=== PATIENT | female | born 1930 | race Caucasian/White ===

== ENCOUNTER → 2016-12-12 | Outpatient (CLI) | payer MEDICARE ==
[~2016-12-12] MED LIST: AMLODIPINE BES2.5 MG PO; ASPIRIN E.C.81 M1 PO; ATENOLOL25 MG PO; CALCIUM500 M4 PO; CELEBREX200 MG PO; CENTRUM SILVER1 EAC3 PO; CIPRO500 MG PO; Cymbalta PO; FISH OIL 1,0001 EAC7 PO; FLAGYL500 MG PO; LYRICA75 MG PO; NORCO 5/3251 TABLET PO; NORVASC2.5 MG PO; Norvasc PO; SYNTHROID100 MCG PO; SYNTHROID25 MCG PO; THERAGRAN1 TABLET PO; VITAMIN B12 PO
== END | disposition home or self-care (01) ==
LOC: CDC 09:36
DX: Z01.810 Encounter for preprocedural cardiovascular examination (principal); H25.12 Age-related nuclear cataract, left eye
CPT/HCPCS: 93000

== ENCOUNTER → 2017-07-18 | Outpatient (CLI) | payer MEDICARE | END | disposition home or self-care (01) | LOC: CDC 10:44 | DX: R94.31 Abnormal electrocardiogram [ECG] [EKG] (principal) | CPT/HCPCS: 93000 ==

== ENCOUNTER 2018-05-05 08:41 | Inpatient (IN) | payer OTHER, MEDICARE ==
[~2018-05-05] VITALS: Ht 160 cm; Wt 49.6 kg
[2018-05-05] VITALS (19 sets, daily range): BP systolic 90–132; BP diastolic 42–79
[~2018-05-05 08:41] MED LIST changes: -SYNTHROID100 MCG PO; +SYNTHROID112 MCG PO
[2018-05-05 09:10] LABS: BASOPHIL (%) 0.1 % (0-1); EOSINOPHIL (%) 0 % (0-5); HEMATOCRIT 44.7 % (36.0-46.0); HEMOGLOBIN 14.9 G/DL (11.9-15.5); IMMATURE GRANULOCYTE (%) 0.6 % (0.0-0.7); LYMPHOCYTE (%) 5.1 % (15-42); LYMPHOCYTE COUNT 0.8 K/uL (1.0-2.8); MCH 32.6 PG (29.0-34.0); MCHC 33.3 G/DL (30.0-36.0); MCV 97.8 FL (83-99); MONOCYTE (%) 2.7 % (3-12); MONOCYTE COUNT 0.5 K/uL (0-0.8); NEUTROPHIL (%) 91.5 % (45-76); PLATELET COUNT 291 K/uL (156-360); RBC DIS.WIDTH-CV 12.8 % (11.8-14.6); RBC DIS.WIDTH-SD 45.8 % (39-53); RED BLOOD COUNT 4.57 M/uL (3.80-5.20); WHITE BLOOD COUNT 16.4 K/uL (4.1-10.2)
[2018-05-05 09:18] LABS: AMYLASE 71 IU/L (1-118); CHLORIDE 101 mEq/L (99-109); POTASSIUM 5.3 mEq/L (3.7-5.4); SODIUM 135 mEq/L (136-147)
[2018-05-05 09:20] LABS: GLUCOSE 179 mg/dL (70-99)
[2018-05-05 09:23] LABS: SERUM ETHYL ALCOHOL < 10 mg/dL
[2018-05-05 09:24] LABS: CREATININE 0.8 mg/dL (0.6-1.3); GFR ESTIMATE (CALCULATED) > 59 mL/min/; INTER. NORMALIZED RATIO 1.1
[2018-05-05 09:25] LABS: UREA NITROGEN (BUN) 22 mg/dL (9-23)
[2018-05-05 09:26] LABS: PTT 26.6 SEC (25-37)
[2018-05-05 09:27] LABS: LIPASE 23 U/L (1.0-51.0)
[2018-05-05 09:33] LABS: TROP-I INTERPRETATION POSITIVE
[2018-05-05 09:35] LABS: TROPONIN-I 8.02 ng/mL (0.0-0.30)
[2018-05-05 19:15] LABS: TROP-I INTERPRETATION POSITIVE; TROPONIN-I 155.99 ng/mL (0.0-0.30)
[2018-05-05 20:33] LABS: CK-MB 325.8 ng/mL (0.0-4.9)
[2018-05-05 20:59] LABS: BASOPHIL (%) 0.2 % (0-1); EOSINOPHIL (%) 0 % (0-5); HEMATOCRIT 37.6 % (36.0-46.0); IMMATURE GRANULOCYTE (%) 0.5 % (0.0-0.7); LYMPHOCYTE (%) 3.7 % (15-42); LYMPHOCYTE COUNT 0.7 K/uL (1.0-2.8); MCH 32.3 PG (29.0-34.0); MCV 97.9 FL (83-99); MONOCYTE (%) 7.3 % (3-12); MONOCYTE COUNT 1.4 K/uL (0-0.8); NEUTROPHIL (%) 88.3 % (45-76); NEUTROPHIL COUNT 16.3 K/uL (1.8-6.4); PLATELET COUNT 239 K/uL (156-360); RBC DIS.WIDTH-CV 13.1 % (11.8-14.6); RBC DIS.WIDTH-SD 46.5 % (39-53); RED BLOOD COUNT 3.84 M/uL (3.80-5.20); WHITE BLOOD COUNT 18.5 K/uL (4.1-10.2)
[2018-05-05 21:05] LABS: HEMOGLOBIN 12.4 G/DL (11.9-15.5)
[2018-05-05 21:12] LABS: CKMB RELATIVE INDEX 11.8 (0.0-3.9); TOTAL CK 2753 IU/L (1-294)
[2018-05-05 21:18] LABS: CREATINE KINASE 2753 IU/L (1-294)
[2018-05-05 21:53] LABS: TOTAL CK 2447 IU/L (1-294)
[2018-05-05 22:01] LABS: CREATINE KINASE 2447 IU/L (1-294)
[2018-05-05 22:11] LABS: CK-MB 252.6 ng/mL (0.0-4.9); CKMB RELATIVE INDEX 10.3 (0.0-3.9)
[2018-05-06] VITALS (13 sets, daily range): BP systolic 84–117; BP diastolic 47–65
[2018-05-06 03:57] LABS: BASOPHIL (%) 0.1 % (0-1); EOSINOPHIL (%) 0 % (0-5); HEMATOCRIT 34.1 % (36.0-46.0); HEMOGLOBIN 11.5 G/DL (11.9-15.5); IMMATURE GRANULOCYTE (%) 0.9 % (0.0-0.7); LYMPHOCYTE (%) 3.1 % (15-42); LYMPHOCYTE COUNT 0.8 K/uL (1.0-2.8); MCHC 33.7 G/DL (30.0-36.0); MCV 97.7 FL (83-99); NEUTROPHIL (%) 87.9 % (45-76); NEUTROPHIL COUNT 22.3 K/uL (1.8-6.4); PLATELET COUNT 214 K/uL (156-360); RBC DIS.WIDTH-CV 13.1 % (11.8-14.6); RBC DIS.WIDTH-SD 46.5 % (39-53); RED BLOOD COUNT 3.49 M/uL (3.80-5.20); WHITE BLOOD COUNT 25.3 K/uL (4.1-10.2)
[2018-05-06 04:09] LABS: CHLORIDE 101 mEq/L (99-109); SODIUM 134 mEq/L (136-147)
[2018-05-06 04:10] LABS: GLUCOSE 123 mg/dL (70-99)
[2018-05-06 04:14] LABS: CREATININE 0.9 mg/dL (0.6-1.3); GFR ESTIMATE (CALCULATED) > 59 mL/min/
[2018-05-06 04:15] LABS: UREA NITROGEN (BUN) 29 mg/dL (9-23)
[2018-05-06 04:16] LABS: TOTAL CK 1751 IU/L (1-294)
[2018-05-06 04:23] LABS: CK-MB 97.2 ng/mL (0.0-4.9); CKMB RELATIVE INDEX 5.6 (0.0-3.9)
[2018-05-06 04:29] LABS: CREATINE KINASE 1751 IU/L (1-294)
[2018-05-06 04:53] LABS: HDL CHOLESTEROL 54 MG/DL (Desirable>=50); LDL CHOLESTEROL 78 mg/dL (Desirable<100); NON-HDL CHOLESTEROL 92 mg/dL (Desirable<160); TOTAL CHOLESTEROL 146 mg/dL (Desirable<200); TRIGLYCERIDES 69 MG/DL (Normal: <150)
[2018-05-06 05:27] LABS: TROP-I INTERPRETATION POSITIVE
[2018-05-06 09:53] LABS: HEMOGLOBIN A1c (GLYCOHEMOGLOB) 4.9 % (Below 5.7)
[2018-05-06] MEDS ORDERED: VITAMIN D31000 UNIT PO (21:07)
[2018-05-06] MEDS ORDERED: ENTOCORT EC3 MG PO (21:08)
[2018-05-06] MEDS ORDERED: CILOSTAZOL50 MG PO (21:08)
[2018-05-06] MEDS ORDERED: FIBERCON625 MG PO (21:11)
[2018-05-07 05:04] VITALS: BP 109/58
[2018-05-07 05:26] LABS: HEMATOCRIT 29.8 % (36.0-46.0); MCHC 33.6 G/DL (30.0-36.0); MCV 98.3 FL (83-99); PLATELET COUNT 157 K/uL (156-360); RBC DIS.WIDTH-CV 13.1 % (11.8-14.6); RBC DIS.WIDTH-SD 46.8 % (39-53); RED BLOOD COUNT 3.03 M/uL (3.80-5.20); WHITE BLOOD COUNT 15.2 K/uL (4.1-10.2)
[2018-05-07 05:49] LABS: CHLORIDE 102 MEQ/L (99-109); CREATININE 0.7 MG/DL (0.6-1.3); GFR ESTIMATE (CALCULATED) > 59 mL/min/; GLUCOSE 116 mg/dL (70-99); POTASSIUM 3.8 MEQ/L (3.7-5.4); SODIUM 134 MEQ/L (136-147); UREA NITROGEN (BUN) 26 mg/dL (9-23)
[2018-05-07 08:40] VITALS: BP 104/59
[2018-05-07 11:09] VITALS: BP 94/50
[2018-05-07 16:06] LABS: HEMATOCRIT 32.8 % (36.0-46.0); HEMOGLOBIN 10.7 G/DL (11.9-15.5); MCH 32.1 PG (29.0-34.0); MCHC 32.6 G/DL (30.0-36.0); MCV 98.5 FL (83-99); RBC DIS.WIDTH-CV 13.2 % (11.8-14.6); RBC DIS.WIDTH-SD 47.2 % (39-53); RED BLOOD COUNT 3.33 M/uL (3.80-5.20); WHITE BLOOD COUNT 13.5 K/uL (4.1-10.2)
[2018-05-07 17:03] VITALS: BP 117/56
[2018-05-07 19:41] LABS: PLAT.SUFFICIENCY ADEQUATE; PLATELET COUNT 155 K/uL (156-360)
[2018-05-07 20:01] VITALS: BP 119/58
[2018-05-08 00:12] VITALS: BP 102/53
[2018-05-08 04:34] VITALS: BP 117/68
[2018-05-08 05:22] LABS: HEMATOCRIT 31.6 % (36.0-46.0); HEMOGLOBIN 10.5 G/DL (11.9-15.5); MCH 32.9 PG (29.0-34.0); MCHC 33.2 G/DL (30.0-36.0); MCV 99.1 FL (83-99); PLATELET COUNT 151 K/uL (156-360); RBC DIS.WIDTH-CV 13.1 % (11.8-14.6); RBC DIS.WIDTH-SD 47.1 % (39-53); RED BLOOD COUNT 3.19 M/uL (3.80-5.20); WHITE BLOOD COUNT 10.6 K/uL (4.1-10.2)
[2018-05-08 06:16] LABS: CHLORIDE 100 MEQ/L (99-109); CREATININE 0.6 MG/DL (0.6-1.3); GFR ESTIMATE (CALCULATED) > 59 mL/min/; GLUCOSE 98 mg/dL (70-99); POTASSIUM 4.1 MEQ/L (3.7-5.4); SODIUM 134 MEQ/L (136-147); UREA NITROGEN (BUN) 20 mg/dL (9-23)
[2018-05-08 08:06] VITALS: BP 122/60
[2018-05-08 11:55] VITALS: BP 91/54
[2018-05-08] MEDS ORDERED: NITROSTAT0.4 MG SL (12:34)
[2018-05-08] MEDS ORDERED: ATORVASTATIN CA80 MG PO (12:34)
[2018-05-08] MEDS ORDERED: ASPIR-LOW81 MG PO (12:36)
[2018-05-08] MEDS ORDERED: BRILINTA90 MG PO (12:37)
[2018-05-08] MEDS ORDERED: METOPROLOL SUCC25 MG PO (12:38)
== END 2018-05-08 14:12 | disposition home health service (06) | DRG 247 ==
LOC: EME 08:41 → CATH 09:08 → ENRESERV 09:23 → 4WEST 12:10 → 4EAST 12:10 → 4WEST 05-06 10:16 → ENRESERV 05-06 10:19 → 4EAST 05-06 15:00
PROVIDERS: Emergency Medicine; Internal Medicine Cardiovascular Disease; Internal Medicine Critical Care Medicine
DX: I21.02 ST elevation (STEMI) myocardial infarction involving left anterior descending coronary artery (principal); E03.9 Hypothyroidism, unspecified; E87.1 Hypo-osmolality and hyponatremia; I10 Essential (primary) hypertension; I25.5 Ischemic cardiomyopathy; I25.10 Atherosclerotic heart disease of native coronary artery without angina pectoris; I71.2 Thoracic aortic aneurysm, without rupture; M79.7 Fibromyalgia; I73.9 Peripheral vascular disease, unspecified; J43.9 Emphysema, unspecified; I97.630 Postprocedural hematoma of a circulatory system organ or structure following a cardiac catheterization; Y84.0 Cardiac catheterization as the cause of abnormal reaction of the patient, or of later complication, without mention of misadventure at the time of the procedure; Y92.230 Patient room in hospital as the place of occurrence of the external cause
CPT/HCPCS: 71045; 80048; 80061; 81003; 82150; 82550 91; 82553; 83036; 83690; 84484; 85025; 85025 91; 85027; 85347; 85610; 85730; 86850; 86900; 86901; 87641; 93005; 93306; 94799; 99281; 99285; C1725; C1757; C1769; C1874; C1887; C1894; G0480; J0153; J1644; J1940; J2250; J2270; J2405; J3010; J3246

== ENCOUNTER 2018-06-12 17:16 | Inpatient (IN) | payer OTHER, MEDICARE ==
[~2018-06-12] VITALS: Ht 160 cm; Wt 52.7 kg
[~2018-06-12 17:16] MED LIST changes: +ASPIR-LOW81 MG PO; +ATORVASTATIN CA80 MG PO; +BRILINTA90 MG PO; +CILOSTAZOL50 MG PO; +ENTOCORT EC3 MG PO; +FIBERCON625 MG PO; +METOPROLOL SUCC25 MG PO; +NITROSTAT0.4 MG SL; +VITAMIN D31000 UNIT PO
[2018-06-12 19:02] LABS: HEMATOCRIT 35.6 % (36.0-46.0); HEMOGLOBIN 11.6 G/DL (11.9-15.5); MCH 32.9 PG (29.0-34.0); MCHC 32.6 G/DL (30.0-36.0); MCV 100.8 FL (83-99); RBC DIS.WIDTH-CV 15.4 % (11.8-14.6); RBC DIS.WIDTH-SD 56.7 % (39-53); RED BLOOD COUNT 3.53 M/uL (3.80-5.20); WHITE BLOOD COUNT 8.7 K/uL (4.1-10.2)
[2018-06-12 19:10] LABS: ALBUMIN 3.3 g/dL (3.2-4.8); CHLORIDE 102 mEq/L (99-109); POTASSIUM 4.6 mEq/L (3.7-5.4); SODIUM 132 mEq/L (136-147)
[2018-06-12 19:12] LABS: GLUCOSE 94 mg/dL (70-99); TOTAL PROTEIN 6.3 g/dL (6.4-8.3)
[2018-06-12 19:14] LABS: TOTAL BILIRUBIN 1.2 mg/dL (0.0-1.0)
[2018-06-12 19:16] LABS: ALKALINE PHOSPHATASE 1454 IU/L (3-129); CREATININE 0.6 mg/dL (0.6-1.3); GFR ESTIMATE (CALCULATED) > 59 mL/min/
[2018-06-12 19:17] LABS: AST (GOT) 571 IU/L (2-34); DIRECT BILIRUBIN 0.7 mg/dL (0.0-0.3); UREA NITROGEN (BUN) 15 mg/dL (9-23)
[2018-06-12 19:19] LABS: ALT (GPT) 404 IU/L (3-49)
[2018-06-12 19:24] LABS: CREATINE KINASE 3449 IU/L (1-294)
[2018-06-12 19:43] LABS: APPEARANCE CLEAR ((CLEAR)); BILIRUBIN NEGATIVE; BLOOD SMALL; COLOR YELLOW ((YELLOW)); GLUCOSE (STRIP) NEGATIVE; KETONES NEGATIVE; LEUKOCYTES TRACE; NITRITE NEGATIVE; PROTEIN (STRIP) NEGATIVE; UROBILINOGEN 0.2 MG/DL (0.2-1.0)
[2018-06-12 19:57] LABS: BACTERIA RARE /HPF; EPITHELIAL CELLS 1+ /HPF; MUCUS NONE SEEN /LPF; RED BLOOD CELLS 0-5 /HPF (0-5); UCUL ADDED? NO; WHITE BLOOD CELLS 0-5 /HPF (0-5)
[2018-06-12] MEDS ORDERED: LISINOPRIL2.5 MG PO (20:15)
[2018-06-12] MEDS ORDERED: CLOPIDOGREL75 MG PO (20:15)
[2018-06-12] MEDS ORDERED: LEVOTHYROXINE112 MCG PO (20:16)
[2018-06-12] MEDS ORDERED: LO-DOSE ASPIRIN81 M1 PO (20:17)
[2018-06-12] MEDS ORDERED: SYNTHROID100 MCG PO (20:17)
[2018-06-12] MEDS ORDERED: NEURONTIN300 MG PO (20:18)
[2018-06-12] MEDS ORDERED: TOPROL XL25 MG PO (20:19)
[2018-06-12 20:21] LABS: PLAT.SUFFICIENCY ADEQUATE; PLATELET COUNT 211 K/uL (156-360)
[2018-06-12 22:30] VITALS: BP 132/78
[2018-06-13 04:07] VITALS: BP 121/58
[2018-06-13 05:52] LABS: HEMATOCRIT 32.2 % (36.0-46.0); HEMOGLOBIN 10.4 G/DL (11.9-15.5); MCH 32.8 PG (29.0-34.0); MCHC 32.3 G/DL (30.0-36.0); MCV 101.6 FL (83-99); PLATELET COUNT 186 K/uL (156-360); RBC DIS.WIDTH-CV 15.2 % (11.8-14.6); RBC DIS.WIDTH-SD 57.7 % (39-53); RED BLOOD COUNT 3.17 M/uL (3.80-5.20); WHITE BLOOD COUNT 6.8 K/uL (4.1-10.2)
[2018-06-13 06:05] LABS: CHLORIDE 108 MEQ/L (99-109); CREATININE 0.5 MG/DL (0.6-1.3); GFR ESTIMATE (CALCULATED) > 59 mL/min/; GLUCOSE 85 mg/dL (70-99); POTASSIUM 3.9 MEQ/L (3.7-5.4); SODIUM 136 MEQ/L (136-147); UREA NITROGEN (BUN) 14 mg/dL (9-23)
[2018-06-13 06:50] LABS: CREATINE KINASE 2273 IU/L (1-294)
[2018-06-13 08:15] VITALS: BP 126/59
[2018-06-13 10:33] LABS: ALBUMIN 2.9 g/dL (3.2-4.8)
[2018-06-13 10:39] LABS: ALKALINE PHOSPHATASE 1234 IU/L (3-129)
[2018-06-13 10:40] LABS: TOTAL PROTEIN 5.1 g/dL (6.4-8.3)
[2018-06-13 10:41] LABS: AST (GOT) 447 IU/L (2-34); DIRECT BILIRUBIN 0.6 mg/dL (0.0-0.3)
[2018-06-13 10:42] LABS: ALT (GPT) 343 IU/L (3-49); TOTAL CK 2591 IU/L (1-294)
[2018-06-13 10:48] LABS: CK-MB 19.6 ng/mL (0.0-4.9); CKMB RELATIVE INDEX 0.8 (0.0-3.9)
[2018-06-13 10:56] LABS: CREATINE KINASE 2591 IU/L (1-294)
[2018-06-13 11:59] VITALS: BP 114/57
[2018-06-13 19:20] VITALS: BP 106/63
[2018-06-13 23:46] VITALS: BP 119/56
[2018-06-14 04:06] VITALS: BP 115/68
[2018-06-14 06:19] LABS: ALBUMIN 2.6 G/DL (3.2-4.8); ALKALINE PHOSPHATASE 939 IU/L (3-129); ALT (GPT) 250 IU/L (3-49); AST (GOT) 313 IU/L (2-34); C-REACTIVE PROTEIN 4.5 MG/L (0-10); DIRECT BILIRUBIN 0.4 mg/dL (0.0-0.3); TOTAL BILIRUBIN 0.8 MG/DL (0.0-1.0)
[2018-06-14 06:26] LABS: CREATINE KINASE 1472 IU/L (1-294)
[2018-06-14 07:33] VITALS: BP 127/63
[2018-06-14 07:54] LABS: CHLORIDE 110 MEQ/L (99-109); CREATININE 0.5 MG/DL (0.6-1.3); GFR ESTIMATE (CALCULATED) > 59 mL/min/; GLUCOSE 85 mg/dL (70-99); SODIUM 139 MEQ/L (136-147); UREA NITROGEN (BUN) 9 mg/dL (9-23)
[2018-06-14 08:28] LABS: BASOPHIL (%) 1.2 % (0-1); BASOPHIL COUNT 0.1 K/uL (0-0.1); EOSINOPHIL (%) 1.5 % (0-5); EOSINOPHIL COUNT 0.1 K/uL (0-0.3); HEMATOCRIT 35.2 % (36.0-46.0); HEMOGLOBIN 11.4 G/DL (11.9-15.5); IMMATURE GRANULOCYTE (%) 0.3 % (0.0-0.7); LYMPHOCYTE (%) 19.8 % (15-42); LYMPHOCYTE COUNT 1.3 K/uL (1.0-2.8); MCH 32.9 PG (29.0-34.0); MCHC 32.4 G/DL (30.0-36.0); MCV 101.7 FL (83-99); MONOCYTE (%) 7.1 % (3-12); MONOCYTE COUNT 0.5 K/uL (0-0.8); NEUTROPHIL (%) 70.1 % (45-76); NEUTROPHIL COUNT 4.6 K/uL (1.8-6.4); NRBC (%) 0.5 /100 WBC (0-0); PLATELET COUNT 196 K/uL (156-360); RBC DIS.WIDTH-CV 15.4 % (11.8-14.6); RBC DIS.WIDTH-SD 57.5 % (39-53); RED BLOOD COUNT 3.46 M/uL (3.80-5.20); WHITE BLOOD COUNT 6.5 K/uL (4.1-10.2)
[2018-06-14 12:26] VITALS: BP 127/60
[2018-06-14 14:04] LABS: ALBUMIN 2.8 g/dL (3.2-4.8)
[2018-06-14 14:07] LABS: TOTAL PROTEIN 5.2 g/dL (6.4-8.3)
[2018-06-14 14:09] LABS: TOTAL BILIRUBIN 0.8 mg/dL (0.0-1.0)
[2018-06-14 14:10] LABS: ALKALINE PHOSPHATASE 1101 IU/L (3-129)
[2018-06-14 14:13] LABS: ALT (GPT) 294 IU/L (3-49); AST (GOT) 345 IU/L (2-34); DIRECT BILIRUBIN 0.5 mg/dL (0.0-0.3)
[2018-06-14 14:33] LABS: CREATINE KINASE 1696 IU/L (1-294)
[2018-06-14 15:20] VITALS: BP 126/60
[2018-06-14 20:21] VITALS: BP 131/64
[2018-06-14 20:45] LABS: ALBUMIN 2.8 G/DL (3.2-4.8); ALKALINE PHOSPHATASE 958 IU/L (3-129); ALT (GPT) 260 IU/L (3-49); AST (GOT) 301 IU/L (2-34); CHLORIDE 107 MEQ/L (99-109); CREATININE 0.5 MG/DL (0.6-1.3); GFR ESTIMATE (CALCULATED) > 59 mL/min/; GLUCOSE 121 mg/dL (70-99); SODIUM 134 MEQ/L (136-147); TOTAL BILIRUBIN 0.8 MG/DL (0.0-1.0); TOTAL PROTEIN 5.3 G/DL (6.4-8.3); UREA NITROGEN (BUN) 9 mg/dL (9-23)
[2018-06-14 21:52] LABS: CREATINE KINASE 1456 IU/L (1-294)
[2018-06-17 09:14] LABS: AP Liver Isoenzyme 65; Alkaline Phosphatase, Total 1022 (H)
[2018-06-17 09:15] LABS: AP Bone Isoenzyme 35; AP Intestine Isoenzyme 0 (L); AP Macrohepatic Isoenzyme 0; AP Placental Isoenzyme 0
== END 2018-06-14 22:20 | disposition home or self-care (01) | DRG 557 ==
LOC: DELPENDDIS → EME 17:16 → EDOF 21:58 → 4SOUTH 21:58 → EDOF 21:58 → ENRESERV 22:01 → 4SOUTH 23:25 → ENPENDDIS 06-14 10:43 → 4SOUTH 06-14 22:20
PROVIDERS: Hospitalist; Internal Medicine; Internal Medicine Gastroenterology; Nurse Practitioner Adult Health; Physician Assistant Medical
DX: M62.82 Rhabdomyolysis (principal); T46.6X5A Adverse effect of antihyperlipidemic and antiarteriosclerotic drugs, initial encounter; I21.09 ST elevation (STEMI) myocardial infarction involving other coronary artery of anterior wall; I25.5 Ischemic cardiomyopathy; R94.5 Abnormal results of liver function studies; I10 Essential (primary) hypertension; I25.10 Atherosclerotic heart disease of native coronary artery without angina pectoris; E78.5 Hyperlipidemia, unspecified; E03.9 Hypothyroidism, unspecified; I73.9 Peripheral vascular disease, unspecified; M79.7 Fibromyalgia; M19.90 Unspecified osteoarthritis, unspecified site; Z96.643 Presence of artificial hip joint, bilateral; Z96.651 Presence of right artificial knee joint; Z79.82 Long term (current) use of aspirin; Z79.02 Long term (current) use of antithrombotics/antiplatelets; Z95.5 Presence of coronary angioplasty implant and graft; Z87.442 Personal history of urinary calculi; Z87.891 Personal history of nicotine dependence
CPT/HCPCS: 36415; 76705; 80048; 80053; 80076; 81003; 82550; 82550 91; 82553; 84075 90; 84080 90; 85025; 85027; 85610; 86140; 99281; 99285; G0378; J1644; J7030